=== PATIENT | male | born 1995 | race Caucasian/White ===

== ENCOUNTER 2022-01-11 20:50 | Emergency (ER) | payer SELFPAY ==
[2022-01-11] MEDS ORDERED: Ketorolac Tromethamine 30 MG/ML VIAL ONE (21:54)
== END 2022-01-11 22:13 | disposition home or self-care (01) ==
LOC: MADERS 20:50
DX: R10.10 Upper abdominal pain, unspecified (principal); M79.18 Myalgia, other site; F17.220 Nicotine dependence, chewing tobacco, uncomplicated; R10.816 Epigastric abdominal tenderness
CPT/HCPCS: 96372; 99283; J1885

== ENCOUNTER 2023-05-08 11:33 | Emergency (ER) | payer OTHER, SELFPAY | END 2023-05-08 12:32 | disposition home or self-care (01) | LOC: MADERS 11:33 | DX: S43.402A Unspecified sprain of left shoulder joint, initial encounter (principal); F17.220 Nicotine dependence, chewing tobacco, uncomplicated; X50.3XXA Overexertion from repetitive movements, initial encounter; X50.1XXA Overexertion from prolonged static or awkward postures, initial encounter; Y93.89 Activity, other specified; Y92.69 Other specified industrial and construction area as the place of occurrence of the external cause ==

== ENCOUNTER 2023-07-18 15:17 | Emergency (ER) | payer SELFPAY ==
[2023-07-18] MEDS ORDERED: Azithromycin 250 MG TAB ONE (16:54)
[2023-07-18] MEDS ORDERED: Ketorolac Tromethamine 60 MG/2 ML VIAL ONE (16:54)
[2023-07-18] MEDS ORDERED: predniSONE 20 MG TAB ONE (16:54)
== END 2023-07-18 17:17 | disposition home or self-care (01) ==
LOC: MADERS 15:17
DX: S29.012A Strain of muscle and tendon of back wall of thorax, initial encounter (principal); J20.9 Acute bronchitis, unspecified; J02.9 Acute pharyngitis, unspecified; F17.220 Nicotine dependence, chewing tobacco, uncomplicated; X58.XXXA Exposure to other specified factors, initial encounter
CPT/HCPCS: 96372; 99283; J1885; J7512

== ENCOUNTER 2024-07-15 16:29 | Emergency (ER) | payer SELFPAY ==
[2024-07-15] MEDS ORDERED: Penicillin V Potassium 250 MG TAB ONE (16:47)
== END 2024-07-15 17:06 | disposition home or self-care (01) ==
LOC: MADERS 16:29
DX: K02.9 Dental caries, unspecified (principal); K05.00 Acute gingivitis, plaque induced; F17.220 Nicotine dependence, chewing tobacco, uncomplicated
CPT/HCPCS: 99283

== ENCOUNTER 2024-08-01 06:35 | Emergency (ER) | payer BC, SELFPAY | END 2024-08-01 07:30 | disposition home or self-care (01) | LOC: MADERS 06:35 | DX: J02.9 Acute pharyngitis, unspecified (principal); F17.290 Nicotine dependence, other tobacco product, uncomplicated | CPT/HCPCS: 87081; 87430; 99283 ==